=== PATIENT | female | born 1980 | race Hispanic/Latino ===

== ENCOUNTER 2020-12-10 08:04 | Emergency (ER) | payer SELFPAY ==
[~2020-12-10] VITALS: Ht 144.8 cm; Wt 54.0 kg
[2020-12-10 09:08] LABS: URINE BILIRUBIN - DIPSTICK NEGATIVE (NEGATIVE); URINE BLOOD DIPSTICK NEGATIVE (NEGATIVE); URINE COLOR YELLOW; URINE GLUCOSE - DIPSTICK NEGATIVE (NEGATIVE); URINE KETONE NEGATIVE (NEGATIVE); URINE LEUK ESTERASE NEGATIVE (NEGATIVE); URINE PROTEIN - DIPSTICK NEGATIVE (NEG-TRACE); URINE SPECIFIC GRAVITY 1.025; URINE UROBILINOGEN - DIPSTICK 0.2 E.U./dL (0.2)
[2020-12-10 09:09] LABS: HEMATOCRIT 38.7 % (37.0-47.0); HEMOGLOBIN 12.8 g/dl (12.0-16.0); IMMATURE GRANULOCYTES 0.1 % (0.0-5.0); MEAN CELL VOLUME 88.8 fL CALC (80.0-100.0); MEAN CORPUSCULAR HGB 29.4 pG CALC (26.0-32.0); MEAN CORPUSCULAR HGB CONC 33.1 g/dL CAL (32.0-36.0); NEUT# 6.76 thou/uL (2.00-7.15); RED BLOOD COUNT 4.36 mill/uL (4.20-5.60); RED CELL DISTRI WIDTH 12.9 % (11.5-15.5)
[2020-12-10 09:11] LABS: URINE NITRITE - DIPSTICK NEGATIVE (Negative)
[2020-12-10 09:18] LABS: ALBUMIN 4.3 g/dL (3.2-5.0); ALKALINE PHOSPHATASE 72 u/l (38-126); AMYLASE 78 u/l (30-110); ANION GAP 12 (6-22 (CALC)); BUN 18 mg/dL (7-17); BUN/CREATININE RATIO 36 (12-20 (CALC)); CARBON DIOXIDE 25 mmol/l (22-30); CHLORIDE 104 mmol/l (95-108); CREATININE 0.5 mg/dL (0.5-1.0); GFR > 60 ML/MIN (>=60 (CALC)); GFR FOR AFR.AMER. > 60 ML/MIN (>=60 (CALC)); LIPASE 43 u/l (23-300); POTASSIUM 4.1 mmol/l (3.5-5.1); SGOT/AST 19 u/l (14-36); SODIUM 136 mmol/l (137-146); TOTAL PROTEIN 7.7 g/dL (6.3-8.2)
[2020-12-10] MEDS ORDERED: ZOFRAN4 MG/TAB PO (11:00)
[2020-12-10] MEDS ORDERED: HYDROCO/APAP1 TA9 PO (11:00)
[2020-12-10 11:04] VITALS: BP 91/55
== END 2020-12-10 11:14 | disposition home or self-care (01) | DRG 446 ==
LOC: ED 08:04
DX: K80.20 Calculus of gallbladder without cholecystitis without obstruction (principal); Z20.822 Contact with and (suspected) exposure to COVID-19

== ENCOUNTER 2020-12-15 07:58 | Day surgery (SDC) | payer SELFPAY ==
[~2020-12-15] VITALS: Ht 142.2 cm; Wt 68.0 kg
[~2020-12-15 07:58] MED LIST: HYDROCO/APAP1 TA9 PO; ZOFRAN4 MG/TAB PO
[2020-12-15] MEDS ORDERED: PERCOCET 5/325M1 TAB PO (11:09)
[2020-12-15 13:26] VITALS: BP 93/59
== END 2020-12-15 13:30 | disposition home or self-care (01) | DRG 419 ==
LOC: ORM 07:58
PROVIDERS: ATTEND Surgery
PROC: 0FT44ZZ Resection of Gallbladder, Percutaneous Endoscopic Approach (ICD-10-PCS; principal; 2020-12-15)
DX: K80.10 Calculus of gallbladder with chronic cholecystitis without obstruction (principal)
CPT/HCPCS: J0131; J1610; J2710; Q9967